=== PATIENT | female | born 1970 | race Caucasian/White ===

== ENCOUNTER 2016-02-28 12:55 | Emergency (ER) | payer OTHER, SELFPAY ==
[~2016-02-28] VITALS: Ht 165.1 cm; Wt 94.8 kg
[~2016-02-28 12:55] MED LIST: ADULT LOW DOSE81 MG PO; ALBUTEROL INH IH; ALBUTEROL2.5 MG/31 INH; ALEVE220 M1 PO; AMARYL4 MG PO; ASPIR 8181 MG PO; AUGMENTIN PO; BENADRYL25 MG PO; BYETTA SQ; CARAFATE 11 GM/10 M1 PO; CIPROFLOXACIN500 M1 PO; COUMADIN 5 MG TA5 M1 PO; DOXYCYCLINE 10100 MG PO; EPIPEN 2-P0.3 MG/0.3 IM; EPIPEN0.3 MG/0.3 IM; FERROUS SULFAT325 M1 PO; FLOMAX0.4 MG PO; GLUCOTROL5 MG PO; GLUMETZA PO; GLUMETZA500 PO; HUMALOG100 UNIT/1 SQ; HUMALOG100 UNIT/1 SUBQ; HYDROCODONE-AP1 EAC6 PO; IBUPROFEN 600600 M1 PO; IBUPROFEN 800800 MG PO; K-DUR10 MEQ PO; LANTUS SQ; LANTUS SUBQ; LANTUS100 UNIT/M SUBQ; LEVEMIR; LOVENOX; LOW DOSE ASPIRI81 M1 PO; MAG DELAY64 MG PO; MEDROL DOSPAK21 TAB PO; MEDROLDOSEPACK PO; MIRALAX255 GM PO; MOBIC15 MG PO; MOBIC7.5 MG PO; NABUMETONE 750750 M1 PO; NOHOMEMEDICATIONS; NORCO 5-325 TA1 EACH PO; NOVOLOG100 UNIT/1 SQ; OMEPRAZOLE20 M2 PO; OXYCODONE H5 MG/5 ML PO; PAXIL10 MG PO; PAXIL30 MG PO; PEPCID20 MG PO; PEPCID40 MG PO; PERCOCET 5-3251 EACH PO; PEXEVA30 MG PO; PREDNISONE 10 M10 MG; PREDNISONE 20 M20 M1 PO; PREDNISONE 20 M20 MG PO; PRILOSEC40 MG PO; PROAIR HFA8.5 GM INH; PROTONIX40 M2 PO; PROZAC10 MG PO; RELAFEN750 MG PO; TORADOL 10 MG T10 MG PO; TRAMADOL 50 MG50 MG PO; TYLENOL325 MG PO; VENTOLIN HFA 1818 GM INH; VENTOLIN HFA INH8 GM IH; VIBRYD; VICODIN 5-5001 EACH PO; WELLBUTRIN 100100 MG PO; WELLBUTRIN SR150 MG PO; XANAX 0.25 MG0.25 MG PO; XANAX 0.5 MG0.5 M1 PO; XANAX 0.5 MG0.5 MG PO; ZANTAC 150MG T150 M1 PO; ZOFRAN ODT4 MG DISSOLVE; ZOFRAN ODT4 MG PO; ZOFRAN4 MG PO; ZOLOFT100 MG PO; ZOLOFT25 MG PO; ZYRTEC10 M2 PO; [UNRECOGNIZED DRUG - OTHER] PO; [UNRECOGNIZED DRUG - OTHER] PO
[2016-02-28 13:28] LABS: ABSOLUTE NEUTROPHILS 5.3 thou/uL (1.4-8.2); BASOPHILS 1.5 % (0.0-2.0); HEMATOCRIT 38.9 % (37.0-47.0); HEMOGLOBIN 13.4 gm/dL (12.0-15.0); LYMPHOCYTES 26.2 % (24.0-44.0); MCH 30.3 pg (26.0-34.0); MCHC 34.4 % (28.0-37.0); MONOCYTES 6.4 % (1.0-8.0); PLATELET COUNT 220 thou/uL (150-400); POLYS 59.9 % (36.0-66.0); RBC 4.42 mil/uL (4.20-5.00); RDW 12.3 % (10.5-14.5); WBC 8.9 thou/uL (4.0-11.0)
[2016-02-28 13:29] LABS: MANUAL DIFF NO
[2016-02-28 13:36] LABS: CALCIUM 8.8 mg/dL (8.5-10.1); CREATININE 0.8 mg/dL (0.6-1.3)
== END 2016-02-28 15:20 | disposition home or self-care (01) ==
LOC: ER 12:55
PROVIDERS: Emergency Medicine
DX: O22.21 Superficial thrombophlebitis in pregnancy, first trimester (principal); I80.01 Phlebitis and thrombophlebitis of superficial vessels of right lower extremity; Z3A.00 Weeks of gestation of pregnancy not specified; R07.89 Other chest pain; J06.9 Acute upper respiratory infection, unspecified; F41.8 Other specified anxiety disorders; J45.909 Unspecified asthma, uncomplicated; Z90.49 Acquired absence of other specified parts of digestive tract; Z90.710 Acquired absence of both cervix and uterus; Z88.8 Allergy status to other drugs, medicaments and biological substances; Z91.018 Allergy to other foods; Z91.040 Latex allergy status; Z88.5 Allergy status to narcotic agent

== ENCOUNTER → 2016-05-04 | Outpatient (CLI) | payer OTHER | LOC: SPEECH 02:43 → RAD 02:43 | DX: R13.14 Dysphagia, pharyngoesophageal phase (principal) ==

== ENCOUNTER → 2016-05-06 | Outpatient (CLI) | payer OTHER | LOC: RAD 02:03 | DX: E04.9 Nontoxic goiter, unspecified (principal); R13.10 Dysphagia, unspecified; K44.9 Diaphragmatic hernia without obstruction or gangrene; R05 Cough ==

== ENCOUNTER → 2016-06-06 | Outpatient (CLI) | payer OTHER ==
[~2016-06-06] VITALS: Ht 165.1 cm; Wt 103.6 kg
[~2016-06-06] MED LIST changes: +BREO ELLIPTA 11 EACH IH
--- NOTE | ~2016-06-06 | HPC ---
[facility] [place] [address] PAIN MANAGEMENT CONSULTATION Name: SAVANNANATALYAVIVIENNE ADELINE Room #: REG FIDEL Jeter#: [id number] Admission: 06/06/16 Attend Phys: Moris Renee DO Discharge: Date of : 70 Report #: [id number] THIS REPORT FOR: //name// CC: Yoan Renee The patient is a very pleasant 46-year-old female, has not been seen since December 2014. She prior had cervical epidural injection in December 2014, lumbar epidural injection in June 2014 and much prior she had a shoulder joint injection under fluoroscopy. Somewhat lost to follow up, returns to pain clinic today noting pain has recurred in the right shoulder radiating to the biceps, recurred about a month ago with exercise. She notes the pain is exacerbated with any rotation of the shoulder. She has taken some p.r.n. hydrocodone I had prescribed greater than a year ago. She does not do well with nonsteroidal antinflammatory medications due to some ongoing gastroesophageal reflux (does take Prilosec 40 mg a day). Prior lumbar radiculopathy status post decompressive laminectomy, cervical radicular symptoms are relatively quiescent at present. PHYSICAL EXAMINATION: A 46-year-old female, BMI is elevated at 38 kilograms per meter squared, but she has lost about 60 pounds since her last visit with active dieting and exercise. Vital signs are stable as noted in the EMR Cervical range of motion is full. Negative Lhermitte's at this time. Right shoulder abduction is limited. Pain with passive and active rotation of the right shoulder. Left arm shows good strength. Rises from chair easily. Gait is tandem. Lower extremity strength is preserved. ASSESSMENT: 1. Symptomatic lumbar radiculopathy status post decompressive laminectomy; cervical radiculopathy by history, symptoms are relatively quiescent at present. 2. Right shoulder degenerative joint disease, recurrent. Pain in the shoulder. RECOMMENDATIONS: 1. We will renew hydrocodone 5/325, 1 q. 6-8 hours as needed for pain. 2. Right shoulder injection under fluoroscopy. 3. Follow up in 2-3 weeks for reevaluation. Cancel if doing well. PROCEDURE NOTE: After written informed consent was obtained including risk of infection, the patient was taken to the fluoroscopy suite, placed in supine position. Skin overlying the shoulder was cleansed with ChloraPrep. Skin wheal with Xylocaine was raised. A 22-gauge stylet needle was placed to contact the proximal aspect of the right humeral head inferior to the AC joint. Negative aspiration was accomplished, 1 mL of Omnipaque was injected, which showed spread within the glenohumeral space. This was followed with 40 mg triamcinolone plus 2 mL of 0.5% preservative-free bupivacaine. Needle was removed. The area was cleansed, Band-Aids applied. The patient monitored for an appropriate period of [address] [address] PAIN MANAGEMENT CONSULTATION Name: VIVIENNE STRICKLAND Room #: REG Cuauhtemoc Jeter#: [id number] Admission: 06/06/16 Attend Phys: Moris Renee DO Discharge: Date of : 70 Report #: [id number] time, discharged in good and stable condition, told to use ice the area today. Cancel appointments in 3 week if doing well. <ELECTRONICALLY SIGNED> By: Moris Renee DO 06/08/16 0932 1215 2325 Moris Renee DO /nt
[2016-06-06 11:19] VITALS: BP 134/81
== END | disposition home or self-care (01) ==
LOC: PAIN 07:26
DX: M19.011 Primary osteoarthritis, right shoulder (principal); M25.511 Pain in right shoulder; M54.12 Radiculopathy, cervical region; E11.9 Type 2 diabetes mellitus without complications; I10 Essential (primary) hypertension; Z98.890 Other specified postprocedural states

== ENCOUNTER → 2016-06-30 | Outpatient (CLI) | payer OTHER ==
[~2016-06-30] VITALS: Ht 165.1 cm; Wt 104.7 kg
[~2016-06-30] MED LIST changes: +ALEVE220 MG PO
--- NOTE | ~2016-06-30 | HPC ---
[facility] [place] [address] PAIN MANAGEMENT CONSULTATION Name: EMVIVIENNE LR Room #: REG [facility] Wil.#: [id number] Admission: 06/30/16 Attend Phys: Moris Renee DO Discharge: Date of : 70 Report #: [id number] THIS REPORT FOR: //name// CC: Yoan Renee HISTORY OF PRESENT ILLNESS: The patient is a very pleasant 46-year-old female, typically treated for both cervical and lumbar radicular symptoms. She had had cervical epidural injections in December of 2014, lumbar epidural injection in June of 2014. Somewhat lost to follow up. She returned to the pain clinic, last month with shoulder pain. Right shoulder was primarily problematic, I did a right shoulder injection under fluoroscopy at that time. She returns to the pain clinic today, noting that shoulder is nearly 100% improved. Still has ongoing pain in the left shoulder. Physical exam shows pain with passive rotation of the shoulder, as well as active rotation, pain over the AC joint. Right shoulder was actually fairly unremarkable at this time. ASSESSMENT: Degenerative joint disease, bilateral shoulders, left and right, history of lumbar radiculopathy, status post decompressive laminectomy and cervical radiculopathy. RECOMMENDATION: 1. Left shoulder injection under fluoroscopy. 2. Continue rare use of hydrocodone. I have given the patient the prescription for hydrocodone at last visit, she has used 3 tablets. Continue naproxen sodium (Aleve OTC) b.i.d. ASSESSMENT: Symptomatic left shoulder pain, degenerative joint disease. PROCEDURE: Left shoulder injection under fluoroscopy. DESCRIPTION OF PROCEDURE: After written informed consent was obtained, the patient was taken to the fluoroscopy suite, placed in the supine position. After sterile prep and drape, skin wheal with Xylocaine was raised. A 22-gauge stylet needle was placed to contact the proximal aspect of the humeral head under the AC joint. Negative aspiration was accomplished. 1 mL of Omnipaque was injected, which showed spread outside of the joint. Needle was repositioned somewhat more medially. Second injection showed easy spread within the joints. This was followed with 40 mg of triamcinolone plus 2 mL of 0.5% preservative-free bupivacaine. Needle was removed. The area was cleansed, Band-Aids applied. The patient was monitored for an appropriate period of time, discharged in good and stable condition. Fluoroscopy time was under 10 seconds. The patient was told to keep ice in the area today. Follow up with pain clinic [address] [address] PAIN MANAGEMENT CONSULTATION Name: VIVIENNE STRICKLAND Room #: REG [facility].#: [id number] Admission: 06/30/16 Attend Phys: Moris Renee DO Discharge: Date of : 70 Report #: [id number] with any concerns for fever, chills, increasing redness or pain. Otherwise, simply follow up as needed. By: 1212 1541 Moris Renee DO /lucretia
[2016-06-30 10:34] VITALS: BP 127/85
== END | disposition home or self-care (01) ==
LOC: PAIN 07:02
DX: M19.012 Primary osteoarthritis, left shoulder (principal); M19.011 Primary osteoarthritis, right shoulder; M54.16 Radiculopathy, lumbar region; M54.12 Radiculopathy, cervical region; I10 Essential (primary) hypertension; E11.9 Type 2 diabetes mellitus without complications; Z98.890 Other specified postprocedural states

== ENCOUNTER 2016-07-24 13:21 | Emergency (ER) | payer OTHER ==
[~2016-07-24] VITALS: Ht 165.1 cm; Wt 98.9 kg
[2016-07-24 14:33] LABS: ABSOLUTE NEUTROPHILS 6.3 thou/uL (1.4-8.2); EOSINOPHILS 3.4 % (0.0-3.0); HEMATOCRIT 40.4 % (37.0-47.0); LYMPHOCYTES 20.5 % (24.0-44.0); MCH 30.7 pg (26.0-34.0); MCHC 34.8 g/dL (28.0-37.0); MCV 88.3 fL (80.0-100.0); MONOCYTES 7.1 % (1.0-8.0); PLATELET COUNT 242 thou/uL (150-400); RBC 4.57 mil/uL (4.20-5.00); WBC 9.3 thou/uL (4.0-11.0)
[2016-07-24 14:37] LABS: MANUAL DIFF NO
[2016-07-24 14:46] LABS: CALCIUM 9.3 mg/dL (8.5-10.1); CREATININE 0.9 mg/dL (0.6-1.0); POTASSIUM 4.3 mmol/L (3.5-5.1)
[2016-07-24 14:50] LABS: TOTAL BILIRUBIN 0.5 mg/dL (<0.1-1.0); TOTAL PROTEIN 7.9 g/dL (6.4-8.2)
[2016-07-24 17:19] LABS: URINE BILIRUBIN NEGATIVE (Negative); URINE BLOOD NEGATIVE (Negative); URINE COLOR YELLOW; URINE GLUCOSE-RANDOM* NEGATIVE (Negative); URINE KETONES NEGATIVE (Negative); URINE LEUKOCYTES-REFLEX NEGATIVE (Negative); URINE PROTEIN (DIPSTICK) NEGATIVE (Negative); URINE SPECIFIC GRAVITY >= 1.030 (1.003-1.035)
[2016-07-24] MEDS ORDERED: ONDANSETRON HCL4 M2 PO (17:54)
[2016-07-24] MEDS ORDERED: PHENAZOPYRIDIN200 M2 PO (17:54)
[2016-07-24] MEDS ORDERED: NORCO 5-325 TA1 EACH PO (18:10)
[2016-07-24] MEDS ORDERED: ACYCLOVIR 200200 MG PO (18:10)
== END 2016-07-24 18:52 | disposition home or self-care (01) ==
LOC: ER 13:21
PROVIDERS: Emergency Medicine
DX: N83.202 Unspecified ovarian cyst, left side (principal); E20.9 Hypoparathyroidism, unspecified; K21.9 Gastro-esophageal reflux disease without esophagitis; F32.9 Major depressive disorder, single episode, unspecified; F41.9 Anxiety disorder, unspecified; J45.909 Unspecified asthma, uncomplicated; Z87.442 Personal history of urinary calculi; Z86.2 Personal history of diseases of the blood and blood-forming organs and certain disorders involving the immune mechanism; Z86.718 Personal history of other venous thrombosis and embolism; Z90.89 Acquired absence of other organs; Z90.49 Acquired absence of other specified parts of digestive tract; Z90.710 Acquired absence of both cervix and uterus; Z91.040 Latex allergy status; Z88.8 Allergy status to other drugs, medicaments and biological substances; Z88.5 Allergy status to narcotic agent; Z91.018 Allergy to other foods

== ENCOUNTER 2016-07-28 11:01 | Emergency (ER) | payer OTHER ==
[~2016-07-28] VITALS: Ht 165.1 cm; Wt 98.9 kg
[~2016-07-28 11:01] MED LIST changes: +ACYCLOVIR 200200 MG PO; +ONDANSETRON HCL4 M2 PO; +PHENAZOPYRIDIN200 M2 PO
[2016-07-28 11:47] LABS: ABSOLUTE NEUTROPHILS 5.3 thou/uL (1.4-8.2); BASOPHILS 0.7 % (0.0-2.0); EOSINOPHILS 6.5 % (0.0-3.0); HEMATOCRIT 40.4 % (37.0-47.0); HEMOGLOBIN 13.7 gm/dL (12.0-15.0); MCH 30.3 pg (26.0-34.0); MCHC 33.9 g/dL (28.0-37.0); MCV 89.1 fL (80.0-100.0); MONOCYTES 8.5 % (1.0-8.0); PLATELET COUNT 218 thou/uL (150-400); POLYS 60.3 % (36.0-66.0); RBC 4.53 mil/uL (4.20-5.00); WBC 8.7 thou/uL (4.0-11.0)
[2016-07-28 11:49] LABS: MANUAL DIFF NO
[2016-07-28 11:52] LABS: CALCIUM 9.2 mg/dL (8.5-10.1); CREATININE 0.9 mg/dL (0.6-1.0); POTASSIUM 4.4 mmol/L (3.5-5.1)
[2016-07-28 11:56] LABS: TOTAL BILIRUBIN 0.4 mg/dL (<0.1-1.0); TOTAL PROTEIN 7.9 g/dL (6.4-8.2)
[2016-07-28 12:27] LABS: URINE BILIRUBIN NEGATIVE (Negative); URINE BLOOD NEGATIVE (Negative); URINE COLOR YELLOW; URINE GLUCOSE-RANDOM* NEGATIVE (Negative); URINE KETONES NEGATIVE (Negative); URINE NITRITE NEGATIVE (Negative); URINE PROTEIN (DIPSTICK) NEGATIVE (Negative); URINE SPECIFIC GRAVITY 1.025 (1.003-1.035); URINE UROBILINOGEN 0.2 E.U./dl (0.2-1.0)
[2016-07-28] MEDS ORDERED: ONDANSETRON HCL4 M2 PO (14:28)
[2016-07-28] MEDS ORDERED: BENTYL 20 MG TA20 M1 PO (14:28)
[2016-07-28] MEDS ORDERED: HYDROCODONE-AP1 EAC6 PO (14:28)
== END 2016-07-28 14:42 | disposition home or self-care (01) ==
LOC: ER 11:01
PROVIDERS: Physician Assistant
DX: R16.2 Hepatomegaly with splenomegaly, not elsewhere classified (principal); Z87.442 Personal history of urinary calculi; F41.9 Anxiety disorder, unspecified; F32.9 Major depressive disorder, single episode, unspecified; J45.909 Unspecified asthma, uncomplicated; E20.9 Hypoparathyroidism, unspecified; Z90.49 Acquired absence of other specified parts of digestive tract; Z90.710 Acquired absence of both cervix and uterus; Z86.718 Personal history of other venous thrombosis and embolism; Z98.890 Other specified postprocedural states; Z91.040 Latex allergy status; Z91.018 Allergy to other foods; Z88.5 Allergy status to narcotic agent; Z88.8 Allergy status to other drugs, medicaments and biological substances

== ENCOUNTER → 2016-11-30 | Outpatient (CLI) | payer OTHER ==
[~2016-11-30] MED LIST changes: +BENTYL 20 MG TA20 M1 PO
--- NOTE | ~2016-11-30 | EKG ---
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
== END ==
LOC: CV 12:35
DX: R19.00 Intra-abdominal and pelvic swelling, mass and lump, unspecified site (principal)

== ENCOUNTER → 2017-03-22 | Outpatient (CLI) | payer OTHER ==
[~2017-03-22] MED LIST changes: +ACCUNEB SO1.25 MG/1 INH; +CYMBALTA30 MG PO; +NOVOLOG100 UNIT/1 SUBQ; +PERCOCET PO; +PREDNISONE 5 MG5 M1 PO; +[UNRECOGNIZED DRUG - OTHER] SUBLING
== END ==
LOC: SLEEPLAB 14:51
DX: G47.33 Obstructive sleep apnea (adult) (pediatric) (principal)

== ENCOUNTER 2017-04-06 15:26 | Inpatient (IN) | payer OTHER ==
[~2017-04-06] VITALS: Ht 165.1 cm; Wt 103.9 kg
[~2017-04-06 15:26] MED LIST changes: -ACCUNEB SO1.25 MG/1 INH; -CYMBALTA30 MG PO; -NOVOLOG100 UNIT/1 SUBQ; -PERCOCET PO; -PREDNISONE 5 MG5 M1 PO; -[UNRECOGNIZED DRUG - OTHER] SUBLING
[2017-04-06 15:29] VITALS: BP 178/96
[2017-04-06 17:20] VITALS: BP 133/82
[2017-04-06 17:36] LABS: ABSOLUTE NEUTROPHILS 8.2 thou/uL (1.4-8.2); BASOPHILS 0.7 % (0.0-2.0); HEMATOCRIT 38.9 % (37.0-47.0); HEMOGLOBIN 12.8 gm/dL (12.0-15.0); LYMPHOCYTES 24.5 % (24.0-44.0); MCH 28.1 pg (26.0-34.0); MCHC 32.8 g/dL (28.0-37.0); MCV 85.9 fL (80.0-100.0); MONOCYTES 3.8 % (1.0-8.0); PLATELET COUNT 277 thou/uL (150-400); RBC 4.53 mil/uL (4.20-5.00); RDW 13.6 % (10.5-14.5)
[2017-04-06 17:55] LABS: CREATININE 1.2 mg/dL (0.6-1.0); POTASSIUM 3.6 mmol/L (3.5-5.1)
[2017-04-06 17:57] LABS: TOTAL BILIRUBIN 0.3 mg/dL (<0.1-1.0); TOTAL PROTEIN 7.2 g/dL (6.4-8.2)
[2017-04-06 17:59] VITALS: BP 145/94
[2017-04-06 19:15] VITALS: BP 127/76
[2017-04-06 21:06] LABS: CALCIUM 9.2 mg/dL (8.5-10.1); CREATININE 1.2 mg/dL (0.6-1.0)
[2017-04-07 01:09] LABS: GLYCOHEMOGLOBIN (HGB A1C) 11.8 % (4.8-5.6)
[2017-04-07 03:09] VITALS: BP 134/75
[2017-04-07 06:49] LABS: ABSOLUTE NEUTROPHILS 12.9 thou/uL (1.4-8.2); BASOPHILS 0.1 % (0.0-2.0); HEMOGLOBIN 12.1 gm/dL (12.0-15.0); LYMPHOCYTES 5.5 % (24.0-44.0); MCH 27.7 pg (26.0-34.0); MCHC 32.8 g/dL (28.0-37.0); MCV 84.6 fL (80.0-100.0); MONOCYTES 2.5 % (1.0-8.0); PLATELET COUNT 209 thou/uL (150-400); POLYS 91.9 % (36.0-66.0); RBC 4.37 mil/uL (4.20-5.00); RDW 13.7 % (10.5-14.5)
[2017-04-07 07:06] LABS: CREATININE 0.9 mg/dL (0.6-1.0); MAGNESIUM 2.2 mg/dL (1.8-2.4); POTASSIUM 4.4 mmol/L (3.5-5.1)
[2017-04-07 07:28] VITALS: BP 104/52
[2017-04-07 11:11] VITALS: BP 155/93
[2017-04-07] MEDS ORDERED: PREDNISONE 20 M20 MG PO (14:50)
[2017-04-07] MEDS ORDERED: NOVOLOG100 UNIT/1 SUBQ (14:50)
[2017-04-07 15:08] LABS: GLYCOHEMOGLOBIN (HGB A1C) 11.8 % (4.8-5.6)
[2017-04-07 16:22] VITALS: BP 144/82
[2017-04-07 16:23] VITALS: BP 144/82
[2017-04-07 19:43] VITALS: BP 146/76
[2017-04-08 06:27] VITALS: BP 144/93
[2017-04-08 07:46] VITALS: BP 157/101
[2017-04-08 08:15] VITALS: BP 148/94
[2017-04-08 08:56] VITALS: BP 144/82
[2017-09-21] MEDS ORDERED: PREDNISONE 5 MG5 M1 PO (10:43)
[2017-09-21] MEDS ORDERED: CYMBALTA30 MG PO (10:44)
[2017-09-21] MEDS ORDERED: [UNRECOGNIZED DRUG - OTHER] SUBLING (10:45)
== END 2017-04-08 08:48 | disposition home or self-care (01) | DRG 916 ==
LOC: ER 15:26 → 3W 16:57 → EROBS 16:57 → 3W 17:45
PROVIDERS: Internal Medicine Endocrinology, Diabetes & Metabolism; Nurse Practitioner; Nurse Practitioner Acute Care; Physician Assistant
DX: T88.6XXA Anaphylactic reaction due to adverse effect of correct drug or medicament properly administered, initial encounter (principal); K21.9 Gastro-esophageal reflux disease without esophagitis; F32.9 Major depressive disorder, single episode, unspecified; F41.9 Anxiety disorder, unspecified; J45.909 Unspecified asthma, uncomplicated; E11.9 Type 2 diabetes mellitus without complications; Z91.040 Latex allergy status; Z87.442 Personal history of urinary calculi; Z90.49 Acquired absence of other specified parts of digestive tract; Z90.710 Acquired absence of both cervix and uterus; Z79.899 Other long term (current) drug therapy; Z88.8 Allergy status to other drugs, medicaments and biological substances; Z91.010 Allergy to peanuts; Z86.718 Personal history of other venous thrombosis and embolism; Y92.89 Other specified places as the place of occurrence of the external cause; Z86.711 Personal history of pulmonary embolism
CPT/HCPCS: 10879

== ENCOUNTER → 2017-09-27 | Outpatient (CLI) | payer OTHER ==
[~2017-09-27] VITALS: Ht 165.1 cm; Wt 89.4 kg
[~2017-09-27] MED LIST changes: +CYMBALTA30 MG PO; +NOVOLOG100 UNIT/1 SUBQ; +PREDNISONE 5 MG5 M1 PO; +[UNRECOGNIZED DRUG - OTHER] SUBLING
--- NOTE | ~2017-09-27 | P ---
[facility] [place] [address] PROCEDURE REPORT Name: EMVIVIENNE LR Room #: REG [facility] Corona#: [id number] Admission: 09/27/17 Attend Phys: Maya Coleman DO Discharge: Date of : 70 Report #: [id number] THIS REPORT FOR: //name// CC: Maya Portillo MD DATE OF SERVICE: 09/27/2017 PROCEDURE: Diagnostic colonoscopy. PATIENT OF: Dr. Yoan Portillo INDICATION FOR PROCEDURE: The patient has had a change in bowel habits since having surgery for bilateral oophorectomies. She has noticed that there is hesitancy of the stool to come out. She has had no abdominal pain, but feels like she has to strain and tries to avoid that in order to prevent causing hemorrhoidal issues. She has had hematochezia with this change in bowel habits, so colonoscopy is being performed today. DESCRIPTION OF PROCEDURE: Informed consent for this procedure was obtained prior to the administration of any medication. The risks of the procedure which include bleeding, perforation, infection, complications of sedation and the possibility I could miss something have been explained to the patient and she has indicated her consent by signing. Propofol was slowly titrated before and during this procedure for patient comfort. A digital rectal exam was performed and aside from internal hemorrhoids that I think I was palpating, no other abnormalities were palpable. The kapturemn colonoscope was introduced through the anal sphincter and advanced under direct visualization to the terminal ileum. Findings are noted on withdrawal of the scope. The prep was marginal in some areas and I was able to clean those areas out well enough to make certain there were no large lesions hiding but small mucosal lesions could have been missed in these uncleared areas. The terminal ileal mucosa appears normal. Cecum, normal mucosa. Ascending colon, normal mucosa. Hepatic flexure, normal mucosa. Transverse colon, normal mucosa. Splenic flexure, normal mucosa. Descending colon, normal mucosa. Sigmoid colon, normal mucosa. Rectum, normal mucosa. On retroflex view, I do see some nonbleeding internal hemorrhoids. The scope was withdrawn. The patient went to the recovery area in stable condition. She tolerated the procedure well. IMPRESSION: Normal colonoscopic exam to the terminal ileum except for the nonbleeding internal hemorrhoids and I think these hemorrhoids are from the bowel issues that she has experienced recently. [address] [address] PROCEDURE REPORT Name: ILANZACHVIVIENNE Room #: REG CLCu[facility]htemoc Jeter#: [id number] Admission: 09/27/17 Attend Phys: Maya Coleman DO Discharge: Date of : 70 Report #: [id number] My recommendations were for her to start taking Linzess 145 mcg 1 or 2 p.o. daily p.r.n. for constipation. I am giving her prescription for 60 of those with 11 refills. I would also recommend that she be on a high fiber diet and get daily exercise regularly and drink 8 glasses of liquid per day. Thank you very much once again for allowing me to participate in her care, Dr. Portillo. <ELECTRONICALLY SIGNED> By: Maya Coleman DO 09/28/17 2334 1315 0637 Maya Coleman DO /nt
== END | disposition home or self-care (01) ==
LOC: GI 10:09
DX: K64.8 Other hemorrhoids (principal); K21.9 Gastro-esophageal reflux disease without esophagitis; I10 Essential (primary) hypertension; E11.9 Type 2 diabetes mellitus without complications; D64.9 Anemia, unspecified; F32.9 Major depressive disorder, single episode, unspecified; F41.9 Anxiety disorder, unspecified; G47.33 Obstructive sleep apnea (adult) (pediatric); J45.909 Unspecified asthma, uncomplicated; Z90.710 Acquired absence of both cervix and uterus; Z85.3 Personal history of malignant neoplasm of breast; Z98.890 Other specified postprocedural states; Z87.442 Personal history of urinary calculi; Z90.49 Acquired absence of other specified parts of digestive tract; Z90.3 Acquired absence of stomach [part of]; Z79.899 Other long term (current) drug therapy; Z91.040 Latex allergy status; Z86.718 Personal history of other venous thrombosis and embolism; Z79.01 Long term (current) use of anticoagulants; Z88.8 Allergy status to other drugs, medicaments and biological substances

== ENCOUNTER 2017-12-18 09:35 | Emergency (ER) | payer OTHER ==
[~2017-12-18] VITALS: Ht 165.1 cm; Wt 101.6 kg
[2017-12-18] MEDS ORDERED: ACCUNEB SO1.25 MG/1 INH (09:54)
[2017-12-18] MEDS ORDERED: PERCOCET PO (11:48)
[2017-12-18 12:19] VITALS: BP 161/82
== END 2017-12-18 12:20 | disposition home or self-care (01) ==
LOC: ER 09:35
DX: M25.512 Pain in left shoulder (principal); Z91.018 Allergy to other foods; Z88.8 Allergy status to other drugs, medicaments and biological substances; Z91.040 Latex allergy status; Z87.442 Personal history of urinary calculi; Z90.13 Acquired absence of bilateral breasts and nipples; E03.9 Hypothyroidism, unspecified; K21.9 Gastro-esophageal reflux disease without esophagitis; F32.9 Major depressive disorder, single episode, unspecified; F41.9 Anxiety disorder, unspecified; Z86.2 Personal history of diseases of the blood and blood-forming organs and certain disorders involving the immune mechanism; J45.909 Unspecified asthma, uncomplicated; Z86.718 Personal history of other venous thrombosis and embolism; Z90.89 Acquired absence of other organs; Z90.49 Acquired absence of other specified parts of digestive tract; Z90.710 Acquired absence of both cervix and uterus

== ENCOUNTER → 2017-12-26 | Outpatient (CLI) | payer OTHER ==
[~2017-12-26] VITALS: Ht 165.1 cm; Wt 101.6 kg
[~2017-12-26] MED LIST changes: +ACCUNEB SO1.25 MG/1 INH; +HUMALOG KW200 UNIT/1 SUBQ; +LEVEMIR FL100 UNIT/2 SUBQ; +PERCOCET PO
[2017-12-26 10:15] VITALS: BP 126/88
== END | disposition home or self-care (01) ==
LOC: MRI 07:52
DX: M65.812 Other synovitis and tenosynovitis, left shoulder (principal); F32.9 Major depressive disorder, single episode, unspecified; F41.9 Anxiety disorder, unspecified; G47.33 Obstructive sleep apnea (adult) (pediatric); K21.9 Gastro-esophageal reflux disease without esophagitis; D64.9 Anemia, unspecified; J45.909 Unspecified asthma, uncomplicated; Z90.49 Acquired absence of other specified parts of digestive tract; Z87.442 Personal history of urinary calculi; Z85.3 Personal history of malignant neoplasm of breast; Z90.710 Acquired absence of both cervix and uterus; Z91.040 Latex allergy status; Z98.890 Other specified postprocedural states; Z90.3 Acquired absence of stomach [part of]; Z79.899 Other long term (current) drug therapy; Z86.718 Personal history of other venous thrombosis and embolism; Z79.01 Long term (current) use of anticoagulants
CPT/HCPCS: 50010; 62110; 62900; 70005

== ENCOUNTER 2018-01-09 09:38 | Emergency (ER) | payer OTHER ==
[~2018-01-09] VITALS: Ht 170.2 cm; Wt 103.0 kg
[2018-01-09] MEDS ORDERED: EPIPEN 2-P0.3 MG/0.3 IM (11:51)
[2018-01-09] MEDS ORDERED: PREDNISONE 20 M20 M1 PO (11:51)
[2018-01-09 13:04] VITALS: BP 154/82
== END 2018-01-09 13:04 | disposition home or self-care (01) ==
LOC: ER 09:38
DX: T88.6XXA Anaphylactic reaction due to adverse effect of correct drug or medicament properly administered, initial encounter (principal); Y92.89 Other specified places as the place of occurrence of the external cause; K21.9 Gastro-esophageal reflux disease without esophagitis; F32.9 Major depressive disorder, single episode, unspecified; F41.9 Anxiety disorder, unspecified; J45.909 Unspecified asthma, uncomplicated; Z88.5 Allergy status to narcotic agent; Z88.8 Allergy status to other drugs, medicaments and biological substances; Z91.040 Latex allergy status

== ENCOUNTER 2018-01-09 21:41 | Inpatient (IN) | payer OTHER ==
[~2018-01-09] VITALS: Ht 165.1 cm; Wt 104.8 kg
[2018-01-09 21:52] VITALS: BP 157/95
[2018-01-09 22:25] LABS: ABSOLUTE NEUTROPHILS 8.2 thou/uL (1.4-8.2); BASOPHILS 0.6 % (0.0-2.0); HEMATOCRIT 36.8 % (37.0-47.0); HEMOGLOBIN 12.2 gm/dL (12.0-15.0); LYMPHOCYTES 6.7 % (24.0-44.0); MCH 27.1 pg (26.0-34.0); MCHC 33.1 g/dL (28.0-37.0); MCV 81.8 fL (80.0-100.0); MONOCYTES 3.7 % (1.0-8.0); PLATELET COUNT 235 thou/uL (150-400); RDW 14.6 % (10.5-14.5); WBC 9.2 thou/uL (4.0-11.0)
[2018-01-09 22:46] LABS: ALBUMIN 3.9 g/dL (3.4-5.0); CALCIUM 9.5 mg/dL (8.5-10.1); CREATININE 1.2 mg/dL (0.6-1.0); POTASSIUM 4.3 mmol/L (3.5-5.1); TOTAL BILIRUBIN 0.4 mg/dL (<0.1-1.0); TOTAL PROTEIN 7.6 g/dL (6.4-8.2)
[2018-01-09 23:32] VITALS: BP 122/73
[2018-01-09 23:34] VITALS: BP 122/73
[2018-01-10] VITALS (8 sets, daily range): BP systolic 108–157; BP diastolic 63–100
[2018-01-10 17:08] LABS: GLYCOHEMOGLOBIN (HGB A1C) 12.3 % (4.8-5.6)
== END 2018-01-10 19:05 | disposition home or self-care (01) | DRG 638 ==
LOC: ER 21:41 → EROBS 23:12 → 3W 23:12
PROVIDERS: Nurse Practitioner Acute Care; Nurse Practitioner Family
DX: E11.65 Type 2 diabetes mellitus with hyperglycemia (principal); T88.6XXA Anaphylactic reaction due to adverse effect of correct drug or medicament properly administered, initial encounter; E87.2 Acidosis; E20.9 Hypoparathyroidism, unspecified; J45.909 Unspecified asthma, uncomplicated; K21.9 Gastro-esophageal reflux disease without esophagitis; F32.9 Major depressive disorder, single episode, unspecified; R74.0 Nonspecific elevation of levels of transaminase and lactic acid dehydrogenase [LDH]; F41.9 Anxiety disorder, unspecified; T38.0X5A Adverse effect of glucocorticoids and synthetic analogues, initial encounter; Z87.442 Personal history of urinary calculi; Z86.718 Personal history of other venous thrombosis and embolism; Z90.49 Acquired absence of other specified parts of digestive tract; Z90.710 Acquired absence of both cervix and uterus; Z90.3 Acquired absence of stomach [part of]; Z90.13 Acquired absence of bilateral breasts and nipples; Z79.4 Long term (current) use of insulin; Z79.899 Other long term (current) drug therapy; Z91.040 Latex allergy status; Z91.018 Allergy to other foods; Z88.8 Allergy status to other drugs, medicaments and biological substances; Y92.89 Other specified places as the place of occurrence of the external cause
CPT/HCPCS: 10879

== ENCOUNTER 2018-03-23 05:25 | Day surgery (SDC) | payer OTHER ==
[~2018-03-23] VITALS: Ht 160 cm; Wt 105.7 kg
[~2018-03-23 05:25] MED LIST changes: +OMEPRAZOLE40 MG PO
[2018-03-23 09:25] VITALS: BP 136/87
[2018-03-23 09:29] LABS: HEMATOCRIT 35.8 % (37.0-47.0); HEMOGLOBIN 11.8 gm/dL (12.0-15.0)
[2018-03-23 11:36] VITALS: BP 136/87
--- NOTE | 2018-03-24 10:39 | EKG ---
[address] [address] ELECTROCARDIOGRAM REPORT Name: VIVIENNE STRICKLAND Room #: 150-2 [facility]..#: [id number] Admission: 03/23/18 Attend Phys: Rachel Kamara MD, Discharge: Date of : 70 Report #: [id number] THIS REPORT FOR: //name// 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
--- NOTE | 2018-03-25 12:09 | O ---
[facility] [place] [address] OPERATIVE REPORT Name: VIVIENNE STRICKLAND Room #: 150-2 [facility] M.R.#: [id number] Admission: 03/23/18 Attend Phys: Rachel Kamara MD, Discharge: Date of : 70 Report #: [id number] THIS REPORT FOR: //name// CC: Rachel Portillo DATE OF SERVICE: 03/23/2018 PREOPERATIVE DIAGNOSIS: Left lower back mass. POSTOPERATIVE DIAGNOSIS: Left lower subfascial back mass. PROCEDURE PERFORMED: Excision of a 4 x 3 cm left lower back mass from the subfascial location. SURGEON: Rachel Kamara M.D. FINAL INSPECTOR PAPER: Medical student. ANESTHESIA: Local with monitored anesthesia care. ESTIMATED BLOOD LOSS: Minimal (less than 5 mL). COMPLICATIONS: None appreciated. SPECIMENS: Back mass to pathology. INDICATIONS: The patient is a 48-year-old female with a palpable mass to her left lower back that is causing increasing discomfort as of late. The patient does have a history of breast cancer and BRCA positivity and secondary to the increasing discomfort with enlargement of the mass, indication was for resection today for both diagnostic and therapeutic measures. DESCRIPTION OF PROCEDURE: After explaining the risks, benefits and alternatives of the procedure with the patient in detail in the preoperative holding area and obtaining written consent, the patient was brought to the operating room and placed supine on the operating room table. After conducting a thorough timeout procedure verifying correct patient and procedure, the patient was given monitored anesthesia care. Once adequate anesthesia was obtained, she was positioned in the right lateral decubitus position with all pressure points appropriately padded. The area over the mass was prepped and draped in standard surgical sterile fashion. A 10 mL of 0.5% Marcaine with epinephrine were used to anesthetize the skin overlying the mass in question. A #15 bladed scalpel was used to create a 2.5 cm transverse skin incision at this location. Electrocautery was used to carry this down through skin and subcutaneous tissues to ensure hemostasis. Once we arrived upon the anterior aspect of the capsule [address] [address] OPERATIVE REPORT Name: EMVIIVENNE Room #: 150-2 [facility] M.R.#: [id number] Admission: 03/23/18 Attend Phys: Rachel Kamara MD, Discharge: Date of : 70 Report #: [id number] of the mass. I was able to dissect circumferentially around the mass, which carried it down into the depths of the wound where it had subfascial extensions. The muscular fascia was opened with electrocautery and I was able to resect the entire mass at its stalk with healthy tissue circumferentially around it. The mass was passed off the field as specimen. Fascia was closed with 3-0 Vicryl. The wound was copiously irrigated. A 3-0 Vicryl was used in standard interrupted inverted fashion for dermis and skin was closed with a running 4-0 Monocryl in standard subcuticular fashion. Dermabond glue was then applied to the skin wounds. At the end of the procedure, all instrument, needle and sponge counts were correct. The patient tolerated the procedure without incident, was awakened in the operating room, transitioned to the recovery room in stable condition with no apparent complications. <ELECTRONICALLY SIGNED> By: Rachel Kamara MD, FACS 03/25/18 1209 1146 1155 Rachel Kamara MD, FACS /nt
--- NOTE | 2018-03-26 15:05 | PATH ---
[facility] [address] [place] [address] PATHOLOGY RPT PROCEDURE Name: SHERRI STRICKLAND Room #: [facility] M.R.#: [id number] Admission: 03/23/18 Date of : 70 Discharge: 03/23/18 Report #: [id number] Path Case #: [id number] [facility] Accession Number: [id number] . 01 Material submitted: . LEFT LOWER BACK MASS . 01 Clinical history: . Back mass. . 02 Diagnosis: Mature adipose tissue, left lower back mass, excision: - Compatible with a lipoma. . (IUV:mml; 03/26/2018) QL/03/26/2018 . 02 Electronically signed: . Yas Hernadez MD, Pathologist NPI- [id number] . 01 Gross description: . Received in formalin labeled "Sherri Strickland, left lower back mass" is a 3.5 x 3.1 x 1.5 cm yellow-pérez lobulated soft tissue mass. The external surface is inked black. The specimen is sectioned to reveal a pérez-yellow lobulated cut surface without hemorrhage or necrosis. Networking Specialist sections are submitted in cassettes A1-A2, with two sections in each cassette. ([facility] [place]; 03/23/2018) SYC/SYC . 02 Pathologist provided ICD-10: D17.79 . 02 CPT . 198186 Specimen Comment: A courtesy copy of this report has been sent to Specimen Comment: [phone], . Specimen Comment: Report sent to / DR FLANNERY Performed at: [address], [place] [id number] MD Gregory Cast MD Phone: [phone] Performed at: [address] [id number] MD Yas Hernadez MD Phone: [phone]
== END 2018-03-23 12:20 | disposition home or self-care (01) ==
LOC: OR 05:25 → TBA 05:25 → OR 12:20
PROVIDERS: Surgery
DX: D17.1 Benign lipomatous neoplasm of skin and subcutaneous tissue of trunk (principal); I10 Essential (primary) hypertension; E11.9 Type 2 diabetes mellitus without complications; D64.9 Anemia, unspecified; F41.9 Anxiety disorder, unspecified; F32.9 Major depressive disorder, single episode, unspecified; K21.9 Gastro-esophageal reflux disease without esophagitis; G47.33 Obstructive sleep apnea (adult) (pediatric); Z87.442 Personal history of urinary calculi; Z85.3 Personal history of malignant neoplasm of breast; Z90.49 Acquired absence of other specified parts of digestive tract; Z98.890 Other specified postprocedural states; Z79.899 Other long term (current) drug therapy; Z88.8 Allergy status to other drugs, medicaments and biological substances; Z91.040 Latex allergy status; Z90.710 Acquired absence of both cervix and uterus
CPT/HCPCS: 50010; 50101; 50386; 50403; 54118; 56524; 56526; 70005

== ENCOUNTER 2018-04-19 08:58 | Emergency (ER) | payer OTHER ==
[~2018-04-19] VITALS: Ht 165.1 cm; Wt 103.4 kg
[2018-04-19 09:18] LABS: URINE BILIRUBIN NEGATIVE (Negative); URINE BLOOD NEGATIVE (Negative); URINE CLARITY CLEAR; URINE COLOR YELLOW; URINE GLUCOSE-RANDOM* 3+ (Negative); URINE KETONES NEGATIVE (Negative); URINE LEUKOCYTES-REFLEX NEGATIVE (Negative); URINE NITRITE-REFLEX NEGATIVE (Negative); URINE PROTEIN (DIPSTICK) NEGATIVE (Negative); URINE UROBILINOGEN 0.2 E.U./dl (0.2-1.0)
[2018-04-19 09:37] LABS: ABSOLUTE NEUTROPHILS 4.2 thou/uL (1.4-8.2); BASOPHILS 1.2 % (0.0-2.0); EOSINOPHILS 5.7 % (0.0-3.0); HEMATOCRIT 39.2 % (37.0-47.0); LYMPHOCYTES 29.1 % (24.0-44.0); MCH 26.4 pg (26.0-34.0); MCHC 33.2 g/dL (28.0-37.0); MCV 79.5 fL (80.0-100.0); MONOCYTES 6.9 % (1.0-8.0); POLYS 57.1 % (36.0-66.0); RBC 4.93 mil/uL (4.20-5.00); RDW 15.1 % (10.5-14.5); WBC 7.7 thou/uL (4.0-11.0)
[2018-04-19 09:41] LABS: CALCIUM 9.9 mg/dL (8.5-10.1); CREATININE 0.9 mg/dL (0.6-1.0); POTASSIUM 4.8 mmol/L (3.5-5.1)
[2018-04-19 09:49] LABS: TOTAL BILIRUBIN 0.5 mg/dL (<0.1-1.0)
[2018-04-19 09:50] LABS: ALBUMIN 4.2 g/dL (3.4-5.0); TOTAL PROTEIN 7.7 g/dL (6.4-8.2)
[2018-04-19 10:08] LABS: PLATELET COUNT 259 thou/uL (150-400)
[2018-04-19 12:38] VITALS: BP 132/82
== END 2018-04-19 12:37 | disposition home or self-care (01) ==
LOC: ER 08:58
PROVIDERS: Emergency Medicine
DX: R10.9 Unspecified abdominal pain (principal); E11.9 Type 2 diabetes mellitus without complications; K21.9 Gastro-esophageal reflux disease without esophagitis; F32.9 Major depressive disorder, single episode, unspecified; F41.9 Anxiety disorder, unspecified; J45.909 Unspecified asthma, uncomplicated; E03.9 Hypothyroidism, unspecified; Z90.89 Acquired absence of other organs; Z90.49 Acquired absence of other specified parts of digestive tract; Z86.2 Personal history of diseases of the blood and blood-forming organs and certain disorders involving the immune mechanism; Z90.710 Acquired absence of both cervix and uterus; Z90.13 Acquired absence of bilateral breasts and nipples; Z86.718 Personal history of other venous thrombosis and embolism; Z91.018 Allergy to other foods; Z88.8 Allergy status to other drugs, medicaments and biological substances; Z98.890 Other specified postprocedural states; Z91.040 Latex allergy status; Z87.442 Personal history of urinary calculi; Z79.4 Long term (current) use of insulin

== ENCOUNTER 2018-04-22 15:14 | Emergency (ER) | payer OTHER ==
[~2018-04-22] VITALS: Ht 162.6 cm; Wt 81.7 kg
[2018-04-22 15:54] LABS: ABSOLUTE NEUTROPHILS 5.3 thou/uL (1.4-8.2); BASOPHILS 0.9 % (0.0-2.0); HEMATOCRIT 36.5 % (37.0-47.0); HEMOGLOBIN 12.1 gm/dL (12.0-15.0); LYMPHOCYTES 30.5 % (24.0-44.0); MCH 26.5 pg (26.0-34.0); MCHC 33.3 g/dL (28.0-37.0); MCV 79.6 fL (80.0-100.0); MONOCYTES 7.8 % (1.0-8.0); PLATELET COUNT 286 thou/uL (150-400); POLYS 55.8 % (36.0-66.0); RBC 4.58 mil/uL (4.20-5.00); RDW 15.2 % (10.5-14.5); WBC 9.5 thou/uL (4.0-11.0)
[2018-04-22 16:03] LABS: CALCIUM 9.1 mg/dL (8.5-10.1); POTASSIUM 3.8 mmol/L (3.5-5.1)
[2018-04-22] MEDS ORDERED: PREDNISONE 20 M20 MG PO (16:42)
[2018-04-22] MEDS ORDERED: ZYRTEC10 M2 PO (16:42)
[2018-04-22] MEDS ORDERED: ZANTAC 150MG T150 MG PO (16:42)
[2018-04-22 17:06] VITALS: BP 134/74
== END 2018-04-22 17:06 | disposition home or self-care (01) ==
LOC: ER 15:14
PROVIDERS: Nurse Practitioner Family
DX: T78.40XA Allergy, unspecified, initial encounter (principal); K21.9 Gastro-esophageal reflux disease without esophagitis; F32.9 Major depressive disorder, single episode, unspecified; F41.9 Anxiety disorder, unspecified; E11.9 Type 2 diabetes mellitus without complications; J45.909 Unspecified asthma, uncomplicated; Z86.718 Personal history of other venous thrombosis and embolism; Z90.89 Acquired absence of other organs; Z90.710 Acquired absence of both cervix and uterus; Z91.040 Latex allergy status; Z88.8 Allergy status to other drugs, medicaments and biological substances; Z91.018 Allergy to other foods; Z86.2 Personal history of diseases of the blood and blood-forming organs and certain disorders involving the immune mechanism; Z87.442 Personal history of urinary calculi; Z90.13 Acquired absence of bilateral breasts and nipples; Z79.4 Long term (current) use of insulin

== ENCOUNTER 2018-05-22 12:03 | Emergency (ER) | payer OTHER ==
[~2018-05-22] VITALS: Ht 165.1 cm; Wt 100.7 kg
[~2018-05-22 12:03] MED LIST changes: +ZANTAC 150MG T150 MG PO
[2018-05-22] MEDS ORDERED: EPIPEN 2-P0.3 MG/0.3 IM (14:33)
[2018-05-22] MEDS ORDERED: PREDNISONE 20 M20 M1 PO (14:34)
[2018-05-22 14:41] VITALS: BP 154/90
== END 2018-05-22 14:43 | disposition home or self-care (01) ==
LOC: ER 12:03
DX: R22.0 Localized swelling, mass and lump, head (principal); T65.811A Toxic effect of latex, accidental (unintentional), initial encounter; E03.9 Hypothyroidism, unspecified; K21.9 Gastro-esophageal reflux disease without esophagitis; F32.9 Major depressive disorder, single episode, unspecified; F41.9 Anxiety disorder, unspecified; E11.9 Type 2 diabetes mellitus without complications; Z86.2 Personal history of diseases of the blood and blood-forming organs and certain disorders involving the immune mechanism; J45.909 Unspecified asthma, uncomplicated; Z90.49 Acquired absence of other specified parts of digestive tract; Z98.890 Other specified postprocedural states; Z91.040 Latex allergy status; Z88.5 Allergy status to narcotic agent; Z88.8 Allergy status to other drugs, medicaments and biological substances; Z91.018 Allergy to other foods; Z87.442 Personal history of urinary calculi; Z90.710 Acquired absence of both cervix and uterus; Z79.4 Long term (current) use of insulin; Y92.89 Other specified places as the place of occurrence of the external cause